=== PATIENT | male | born 1965 | race Caucasian/White ===

== ENCOUNTER 2017-11-14 12:41 | Emergency (ER) | END 2017-11-14 16:02 | disposition home or self-care (01) ==

== ENCOUNTER 2019-04-29 08:03 | Inpatient (IN) | payer OTHER ==
[~2019-04-29] VITALS: Ht 170.2 cm; Wt 91.9 kg
[~2019-04-29 08:03] MED LIST: CEPH-443 PO; IBUP-1561 PO; SULF1TAB31 PO
[2019-04-29] MEDS ORDERED: CEFEPIME 2GM/50 ML (PMX) 50 ML IVPB STA (08:21)
[2019-04-29] MEDS ORDERED: ACETAMINOPHEN 325 MG TAB PO STA (08:21)
[2019-04-29] MEDS ORDERED: SODIUM CHLORIDE 0.9% 1L BAG IV* STA (08:21)
[2019-04-29] MEDS ORDERED: HYDROmorphONE 1 MG/ML SYG IV STA ×2 (08:21→11:42)
[2019-04-29] MEDS ORDERED: ONDANSETRON 4 MG INJ IV STA ×2 (08:21→11:42)
[2019-04-29] MEDS ORDERED: VANCOMYCIN 1 GM (PMX) 250 ML IVPB ONE (08:30)
[2019-04-29] MEDS ORDERED: TACR1CAP26 PO (08:55)
[2019-04-29] MEDS ORDERED: TERA1CAP3 PO (08:56)
[2019-04-29] MEDS ORDERED: PANT40TA3 PO (08:57)
[2019-04-29] MEDS ORDERED: AMLO5TAB4 PO (08:57)
[2019-04-29] MEDS ORDERED: SULF1TAB31 PO (08:58)
[2019-04-29] MEDS ORDERED: CALC1TAB79 PO (08:59)
[2019-04-29] MEDS ORDERED: MAGN400T28 PO (08:59)
[2019-04-29] MEDS ORDERED: IODIXANOL LOCM 100 ML BTL ONE (09:28)
[2019-04-29] MEDS ORDERED: SOD CHLORIDE 0.9% 100 ML ONE (09:28)
[2019-04-29] MEDS ORDERED: ACETAMINOPHEN 325 MG TAB PO PRN (11:30)
[2019-04-29] MEDS ORDERED: ONDANSETRON 4 MG INJ IV PRN (11:30)
[2019-04-29] MEDS: TACROLIMUS 1 MG CAP PO SCH ×2 (12:30→21:29)
[2019-04-29] MEDS ORDERED: DEXTROSE 5%-0.45% NACL 1,000 ML IV SCH (12:30)
[2019-04-29] MEDS ORDERED: morphine 2 MG INJ IV PRN (12:30)
[2019-04-29] MEDS: AMLODIPINE 5 MG TAB PO SCH (12:30)
[2019-04-29] MEDS: PANTOPRAZOLE (EC) 40 MG TAB PO SCH (12:30)
--- NOTE | 2019-04-29 12:36 | ERD ---
ER Documentation Chief Complaint Chief Complaint fever , chiils , body ache x 1 day HPI This is a 53-year-old male with a past medical history of a liver transplant initially in 2011 that failed. The patient had a liver transferred secondary to hepatitis C and a second transplant was 2013 at [facility]. His liver specialist is Dr. Palomares. He was seen and evaluated by his doctor 3 days prior to arrival for frequent urination. He been placed on Bactrim despite a normal urinalysis for suspected prostatitis. The patient yesterday had developed a tactile fever with shaking and chills. He was complaining of bilateral flank p ain. He had generalized weakness. His indicated she gave 1000 mg of Tylenol at 8 PM yesterday evening. He had further dose of Tylenol given at 2 AM this morning which was 500 mg. Patient does state he has mild tenderness in the right upper quadrant. He denies any recent hospitalizations. He denies a headache. He has no chest pain or shortness of breath. ROS All systems reviewed and are negative except as per history of present illness. Medications Home Meds Reported Medications Magnesium Oxide* (Magnesium Oxide*) 400 Mg Tablet, 400 MG PO BID, TAB 04/29/19 Calcium Carbonate/Vitamin D3 (Oysco 500+D Tablet) 1 Each Tablet, 1 EACH PO BID, TAB 04/29/19 Pantoprazole* (Protonix*) 40 Mg Tablet.dr, 40 MG PO DAILY, TAB 04/29/19 Amlodipine Besylate* (Norvasc*) 5 Mg Tablet, 5 MG PO DAILY, TAB 04/29/19 Terazosin Hcl* (Terazosin Hcl*) 1 Mg Capsule, 1 MG PO HS, CAP 04/29/19 Tacrolimus* (Prograf*) 1 Mg Capsule, 1 MG PO Q12, CAP 04/29/19 Discontinued Reported Medications Sulfamethoxazole/Trimethoprim* (Bactrim Ds* Tablet) 1 Each Tablet, 1 TAB PO BID, TAB STARTED 7-10 FOR 14 DAYS 04/29/19 Discontinued Scripts Ibuprofen* (Motrin*) 400 Mg Tab, 400 MG PO Q8 PRN for PAIN AND OR ELEVATED TEMP, #12 TAB Prov:ELSA WHITTEN MD 11/14/17 Sulfamethoxazole/Trimethoprim* (Bactrim Ds* Tablet) 1 Each Tablet, 1 TAB PO BID for 7 Days, #14 TAB Prov:GOTTI-ROSS,ELSA MD 11/14/17 Cephalexin* (Keflex*) 500 Mg Capsule, 500 MG PO BID for 7 Days, CAP Prov:ELSA WHITTEN MD 11/14/17 Allergies Allergies: Coded Allergies: morphine (Verified Adverse Reaction, Intermediate, RASH, 04/29/19) PMhx/Soc History of Surgery: Yes (2 LIVER TRANSPLANTS) Anesthesia Reaction: No Hx Neurological Disorder: No Hx Respiratory Disorders: No Hx Cardiac Disorders: Yes (HTN) Hx Psychiatric Problems: No Hx Miscellaneous Medical Probl: No Hx Alcohol Use: No Hx Substance Use: No Hx Tobacco Use: No Smoking Status: Never smoker Physical Exam Vitals Vital Signs Date Temp Pulse Resp B/P (MAP) Pulse Ox O2 O2 Flow FiO2 Time Delivery Rate 04/29/19 92 20 106/74 100 Room Air 10:30 (85) 04/29/19 99.1 90 18 122/87 97 Nasal 2.0 09:34 (99) Cannula 04/29/19 93 19 122/87 98 Nasal 08:25 (99) Cannula 04/29/19 101.1 105 18 134/78 97 08:07 (96) Physical Exam Constitutional:Well-developed. Well-nourished. HEENT:Normocephalic. Atraumatic.Pupils were equal round reactive to light. Dry mucous membranes.No tonsillar exudates. Neck: No nuchal rigidity. No lymphadenopathy. No posterior cervical spine tenderness or step-offs. Respiratory: Not using accessory muscles of respiration.Lungs were clear to auscultation bilaterally. No rhonchi. No rales. No wheezing. Cardiovascular: Tachycardic with regular rhythm.No murmurs. No rubs were appreciated.S1, S2 normal. Distal pulses are palpable 2+ bilaterally. GI: Abdomen was soft. Right upper quadrant tenderness. Non Distended. No pulsatile abdominal masses or bruits. No rebound. No guarding. Bowel sounds were present and normal. Muscle skeletal: Full range of motion of both the upper and lower extremities bilaterally.Normal muscle tone.No assymetrical calf tenderness or swelling. Skin: Diaphoretic. No petechia, no purpura. No lesions on the palms or the soles of the feet. No maculopapular rash. NEURO: Patient was alert, awake, orientated x3.No facial droop. Gait observed and normal with no ataxia.Speech had regular rate and rhythm. No focal neurological deficits. Result Diagram: 04/29/19 0920 04/29/19 0830 Results 24 hrs Laboratory Tests Test 04/29/19 08:30 04/29/19 08:33 04/29/19 08:58 04/29/19 09:20 Prothrombin Time 14.7 Sec Prothrombin Time 1.1 Ratio INR 1.14 International Normalized Ratio Activated 22.2 Sec Partial Thrombop last Time Sodium Level 137 mmol/L Potassium Level 4.1 mmol/L Chloride Level 102 mmol/L Carbon Dioxide 23 mmol/L Level Anion Gap 12 Blood Urea 15 mg/dl Nitrogen Creatinine 1.16 mg/dl Est Glomerular > 60 mL/min Filtrat Rate mL/min Glucose Level 227 mg/dl Calcium Level 9.9 mg/dl Total Bilirubin 1.5 mg/dl Direct Bilirubin 0.00 mg/dl Indirect 1.5 mg/dl Bilirubin Aspartate Amino 233 IU/L Transf (AST/SGOT ) Alanine 225 IU/L Aminotransferase (ALT/SGPT) Alkaline 83 IU/L Phosphatase Troponin I < 0.012 ng/ml Total Protein 8.1 g/dl Albumin 4.6 g/dl Globulin 3.50 g/dl Albumin/Globulin 1.31 Ratio Amylase Level 63 U/L Lipase 27 U/L POC Venous 1.1 mmol/L Lactate Urine Color [place] Urine Clarity SLIGHTLY CLOUDY Urine pH 6.0 Urine Specific 1.026 [place] Urine Ketones TRACE mg/dL Urine Nitrite NEGATIVE mg/dL Urine Bilirubin 1+ mg/dL Urine 1+ mg/dL Urobilinogen Urine Leukocyte NEGATIVE Stephanie/ul Esterase Urine 1 /HPF Microscopic RBC Urine 2 /HPF Microscopic WBC Urine Squamous FEW /HPF Epithelial Cells Urine Mucus FEW /HPF Urine Hemoglobin NEGATIVE mg/dL Urine Glucose NEGATIVE mg/dL Urine Total 2+ mg/dl Protein White Blood 12.6 10^3/ul Count Red Blood Count 5.31 10^6/ul Hemoglobin 16.4 g/dl Hematocrit 49.1 % Mean Corpuscular 92.5 fl Volume Mean Corpuscular 30.9 pg Hemoglobin Mean Corpuscular 33.4 g/dl Hemoglobin Viola nt Red Cell 12.2 % Distribution Width Platelet Count 111 10^3/UL Mean Platelet 11.0 fl Volume Immature 0.600 % Granulocytes % Neutrophils % 87.0 % Lymphocytes % 5.4 % Monocytes % 6.8 % Eosinophils % 0.0 % Basophils % 0.2 % Nucleated Red 0.0 /100WBC Blood Cells % Immature 0.080 10^3/ul Granulocytes # Neutrophils # 11.0 10^3/ul Lymphocytes # 0.7 10^3/ul Monocytes # 0.9 10^3/ul Eosinophils # 0.0 10^3/ul Basophils # 0.0 10^3/ul Nucleated Red 0.0 10^3/ul Blood Cells # Test 04/29/19 10:21 Lactic Acid 1.2 mmol/L Level Current Medications Medications Dose Sig/Alcon Start Time Status Last (Trade) Ordered Route PRN Stop Time Admin Dose Reason Admin Sodium 2,610 ml BOLUS OVER 2 04/29/19 DC 04/29/19 Chloride HOURS STAT 08:21 08:48 (NS) IV* 04/29/19 08:23 650 mg ONCE STAT 04/29/19 DC 04/29/19 Acetaminophen PO 08:21 08:47 (Tylenol 04/29/19 08:23 Tab) 1 mg ONCE STAT 04/29/19 DC 04/29/19 Hydromorphone IV 08:21 08:48 HCl 04/29/19 08:23 (Dilaudid) Ondansetron 4 mg ONCE STAT 04/29/19 DC 04/29/19 HCl (Zofran IV 08:21 08:47 Inj) 04/29/19 08:23 Cefepime HCl 50 ml @ ONCE STAT 04/29/19 DC 04/29/19 100 mls/hr IVPB 08:21 08:48 04/29/19 08:50 Vancomycin 250 ml @ ONCE ONCE 04/29/19 DC 04/29/19 HCl 125 mls/hr IVPB 08:30 09:59 04/29/19 10:29 IV Flush 10 ml STK-MED 04/29/19 DC (NS 10 ml) ONCE .ROUTE 09:28 04/29/19 09:29 Sodium 100 ml @ ud STK-MED 04/29/19 DC Chloride ONCE .ROUTE 09:28 04/29/19 09:29 Iodixanol 100 ml STK-MED 04/29/19 DC (Visipaque ONCE .ROUTE 09:28 Locm) 04/29/19 09:29 Procedures/MDM This patient presented to the emergency department with abdominal pain and was seen and evaluated by myself. My differential diagnosis included but was not limited to abdominal aortic aneurysm, appendicitis, pancreatitis, perforated p eptic ulcer, perforated viscus, Boerhaave's syndrome or visceral pain such as diverticulitis, DKA, esophagitis, hepatitis or bowel obstruction. The patient was placed on a expansion envelope maker hand, continuous pulse oximetry, and IV access was established by nursing staff. The patient did meet Sirs criteria. However the patient's lactic acid was normal. Blood cultures and urine cultures were obtained. The patient did receive a 30 cc/kg bolus of normal saline initially was treated for vancomycin and cefepime for sepsis of unclear etiology. The patient had no evidence of urinary tract infection as there is no pyuria on his urinalysis. The patient had no leukocytosis. Mild transaminitis but no severe electrolyte abnormalities. Fever was controlled with acetaminophen. I obtained a chest radiograph and there is no infiltrates no pneumothorax or pleural effusions. Due to the patient's physical exam findings and history of liver transplant with tenderness the right upper quadrant I did obtain a CT scan of the abdomen with IV contrast that was reviewed by the radiologist and indicated the following: Postoperative changes consistent with previous hepatic transplant. No biliary ductal dilatation. There is mild fat indistinctness surrounding the hepatic hilum along with mild biliary ductal enhancement, which may be postoperative although for which the possibility of a process such as cho langitis is not excluded. Incomplete opacification of the SMV, just inferior to which there is an u nopacified branch vessel that may relate to the phase of scanning although for which the possibility of slow flow or nonocclusive thrombus is not excluded. Short-term imaging follow-up by contrast enhanced CT, or MRI without and with contrast could be considered for further assessment. While there appears to be altered postsurgical anatomy of the bowel, there are no findings seen to suggest intestinal obstruction, nor localizing bowel wall thickening or inflammatory changes seen at this time. The patient will be admitted to the renal physician Dr. Wang. The patient will undergo an MRCP to rule out for cholangitis. The patient was given analgesic medication which improved his abdominal discomfort and myalgias. Critical Care: Time: 35 minutes Treatments/Evaluations: Close monitoring and treatment of unstable vital signs, cardiorespiratory, and neurologic status, while maintaining tight balance of fluid, respiratory, and cardiac interventions. Time does not include performing any of the above billable procedures. 12 Lead EKG tracing ordered and reviewed by myself showed: Normal sinus rhythm of 89 bpm and no arrhythmia. CT interval normal. QRS duration normal. No ST segment elevation No ST segment depression. No changes consistent with acute ischemia. Departure Diagnosis: Primary Impression: Fever Fever type: unspecified Qualified Codes: R50.9 - Fever, unspecified Additional Impressions: Abdominal pain Abdominal location: right upper quadrant Qualified Codes: R10.11 - Right upper quadrant pain Hyperglycemia without ketosis Condition: Serious WILIAN ROY MD Apr 29, 2019 12:25
[2019-04-29 12:55] VITALS: BP 113/74; PULSE 105; RESP 20
[2019-04-29 13:07] VITALS: Ht 170.2 cm; Wt 91.9 kg
[2019-04-29] MEDS: PIPER-TAZO 3.375 GM IV (PMX) 100 ML IVPB SCH ×2 (13:39→21:30)
--- NOTE | 2019-04-29 13:50 | HP ---
DATE OF ADMISSION: 04/29/2019 CHIEF COMPLAINT: Right-sided abdominal pain associated with fever. HISTORY OF PRESENT ILLNESS AND HOSPITAL COURSE: A 53-year-old gentleman with history of hepatitis C, status post treatment followed by a liver transplant 5 years prior to admission, presented to emerge ncy room with complaint of right-sided abdominal pain associated with fevers. The patient reports 2 episodes of emesis. He denies bright red blood. He denies hematemesis. No bright red blood per rec kristie or melena. He was seen by is transplant team a few days prior to admission and started on Bactri m for presumed UTI. Initial evaluation revealed white blood cell count of 12.6. Hemoglobin was 16.4 , platelet count of 111,000. Basic metabolic panel was essentially normal except for glucose of 227. Total bilirubin was 1.5 with AST of 233, ALT of 225 and alkaline phosphatase of 83. CAT scan of th e abdomen and pelvis showed postoperative changes consistent with previous hepatic transplant. There was no biliary ductal dilatation; however cholangitis could not be excluded. There was also incompl ete opacification of SMV suggestive of thrombosis. PAST MEDICAL HISTORY: Includes a history of: 1. Hepatitis C. 2. Hypertension. PAST SURGICAL HISTORY: Status post liver transplant 5 years prior to admission. MEDICATIONS PRIOR TO ADMISSION: 1. Bactrim double strand. 2. Amlodipine 5 mg p.o. daily. 3. Vitamin D supplement. 4. Magnesium oxide. 5. Protonix. 6. Tacrolimus. 7. Terazosin. SOCIAL HISTORY: The patient lives at home. He denies tobacco or alcohol use. PHYSICAL EXAMINATION: GENERAL: Well-developed, well-nourished, obese male who is in mild distress. VITAL SIGNS: Stable. Temperature was 101 degrees Fahrenheit. HEENT: Extraocular muscles intact. Pupils equal and reactive to light bilaterally. Sclerae are ani cteric. Oropharynx is clear and moist. NECK: Supple, no JVD, no carotid bruits. LUNGS: Clear to auscultation bilaterally. CARDIAC: Regular rate and rhythm. No murmurs or gallops. ABDOMEN: Soft, right upper quadrant and epigastric tenderness to palpation. No rebound or guarding. Normoactive bowel sounds. EXTREMITIES: No clubbing, cyanosis, or edema. NEUROLOGIC: Grossly nonfocal. ASSESSMENT: 1. A 53-year-old male presenting with right upper quadrant abdominal pain and fever. Rule out chola ngitis. Rule out acute cholecystitis. 2. History of hepatitis C. 3. Status post liver transplant 5 years prior to admission. 4. Elevated LFTs, rule out rejection. 5. Hypertension. PLAN: 1. Admit to med/surg. 2. IV Zosyn. 3. MRCP. 4. Resume selective home medications. 5. Keep n.p.o. 6. GI consultation was requested. Dictated By: SHELBY FALL/BANDAR Conf#: [id number] DID#: [id number] CC: DRU HERZOG;*EndCC*
--- NOTE | 2019-04-29 13:58 | CONS ---
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 Gomez CC: DRU GOMEZ MD ; Consultation Date/Type/Reason Admit Date/Time Apr 29, 2019 at 11:04 Date of Consultation: Apr 29, 2019 Type of Consult GI Reason for Consultation Indirect hyperbilirubinemia, transaminitis -Rule out cholangitis Date/Time of Note DATE: 04/29/19 TIME: 13:41 Hx of Present Illness This is a 53-year-old male past medical history of hypertension, hepatitis C leading to liver cirrhosis status post liver transplant in 2011 which was rejected, patient was then treated for hepatitis C and received another transplant in 2013. He was recently seen by his primary care doctor on and placed on Bactrim?. Sunday he was seen by liver transplant team with normal liver function tests. Yesterday around 3:00 patient began to feel dizzy, later in the day after dinner he began to complain of chills and subjective fever. He was given 1000 mg of Tylenol, however fever did not improve and patient presented to [facility] earlier this morning for further evaluation. Lab work-up shows Leukocytosis with WBC of 12.6, platelet count of 111 and INR of 1.14, and indirect hyperbilirubinemia of 1.5 with elevated AST to 233 and elevated ALT at 225, and albumin of 4.6.. A CT abdomen pelvis was obtained showing post operative changes consistent with previous hepatic transplants. No biliary ductal dilation. There is mild fat indistinctness rounding the hepatic hilum along with mild biliary ductal enhancement, which may be postoperative although for which the possibility of a process such as cholangitis is not excluded. Complete opacification of the SMV just inferior to which there is an unopacified branch vessel that may relate to the phase of scanning although for which the possibility of slow flow or non-occlusive thrombus is not excluded. Short-term injury follow-up by contrast-enhanced CT or MRI with and without contrast to be considered for further assessment. While there appears to be altered postsurgical anatomy of the bowel there are no findings seen to suggest intestinal obstruction, no localization bowel wall thickening or inflammation changes seen at this time. Does complain of upper right upper quadrant pain at time evaluation patient is resting in bed slightly diaphoretic with a low-grade temperature of 99.6 he does complain of mild/moderate right upper quadrant pain. Past Medical History Home Meds Reported Medications Magnesium Oxide* (Magnesium Oxide*) 400 Mg Tablet, 400 MG PO BID, TAB 04/29/19 Calcium Carbonate/Vitamin D3 (Oysco 500+D Tablet) 1 Each Tablet, 1 EACH PO BID, TAB 04/29/19 Pantoprazole* (Protonix*) 40 Mg Tablet.dr, 40 MG PO DAILY, TAB 04/29/19 Amlodipine Besylate* (Norvasc*) 5 Mg Tablet, 5 MG PO DAILY, TAB 04/29/19 Terazosin Hcl* (Terazosin Hcl*) 1 Mg Capsule, 1 MG PO HS, CAP 04/29/19 Tacrolimus* (Prograf*) 1 Mg Capsule, 1 MG PO Q12, CAP 04/29/19 Discontinued Reported Medications Sulfamethoxazole/Trimethoprim* (Bactrim Ds* Tablet) 1 Each Tablet, 1 TAB PO BID, TAB STARTED 7-10 FOR 14 DAYS 04/29/19 Discontinued Scripts Ibuprofen* (Motrin*) 400 Mg Tab, 400 MG PO Q8 PRN for PAIN AND OR ELEVATED TEMP, #12 TAB Prov:ELSA WHITTEN MD 11/14/17 Sulfamethoxazole/Trimethoprim* (Bactrim Ds* Tablet) 1 Each Tablet, 1 TAB PO BID for 7 Days, #14 TAB Prov:ELSA WHITTEN MD 11/14/17 Cephalexin* (Keflex*) 500 Mg Capsule, 500 MG PO BID for 7 Days, CAP Prov:ELSA WHITTEN MD 1/31/18 Medications Current Medications Acetaminophen (Tylenol Tab) 650 mg ER BRIDGE PRN PO .MILD PAIN 1-3 OR TEMP; Start 04/29/19 at 11:30; Stop 04/30/19 at 11:29 Piperacillin Sod/ Tazobactam Sod 100 ml @ 200 mls/hr Q8 IVPB Last administered on 04/29/19at 13:39; Admin Dose 200 MLS/HR; Start 04/29/19 at 14:00 Ondansetron HCl (Zofran Inj) 4 mg Q4 PRN IV nausea; Start 04/29/19 at 12:30 Dextrose/Sodium Chloride 1,000 ml @ 100 mls/hr Q10H IV Last administered on 04/29/19at 13:28; Admin Dose 100 MLS/HR; Start 04/29/19 at 12:30 Morphine Sulfate (morphine) 2 mg Q3 PRN IV mod pain; Start 04/29/19 at 12:30; Status UNV Amlodipine Besylate (Norvasc) 5 mg DAILY PO ; Start 04/29/19 at 12:30 Pantoprazole (Protonix Tab) 40 mg DAILY PO ; Start 04/29/19 at 12:30 Tacrolimus (Prograf) 1 mg Q12 PO ; Start 04/29/19 at 12:30 Terazosin HCl (Hytrin) 1 mg HS PO ; Start 04/29/19 at 21:00 Insulin Aspart (Novolog Insulin Pen) NOVOLOG *MODERATE* ALGORITHM WITH MEALS BEDTIME SC ; Start 04/29/19 at 18:00 Allergies: Coded Allergies: morphine (Verified Adverse Reaction, Intermediate, RASH, 04/29/19) Social History Smoking Status: Never smoker Exam/Review of Systems Exam Vitals Vital Signs Date Temp Pulse Resp B/P (MAP) Pulse Ox O2 O2 Flow FiO2 Time Delivery Rate 04/29/19 Nasal 2.0 13:22 Cannula 04/29/19 98.2 105 20 113/74 91 12:55 (87) Exam PHYSICAL EXAMINATION: GENERAL: Well developed, well nourished, alert & oriented x 3 SKIN: No lesions HEAD: Normocephalic, atraumatic, no tenderness. EYES: Pupils equal reactive to light and accommodation, no discharge. EARS/NOSE AND THROAT: Ears normal, nose normal. NECK: Supple, no masses CHEST: Inspection within normal limits. CARDIOVASCULAR: Heart: Regular rate and rhythm RESPIRATORY: Lungs clear to auscultation GASTROINTESTINAL AND LIVER: Abdomen: Soft, RUQ tenderness, non-distended, no hernias, no masses, no guarding, no rebound tenderness, normoactive bowel sounds. Rectal: Deferred. Results Result Diagram: 04/29/19 0920 04/29/19 0830 Results 24hrs Laboratory Tests Test 04/29/19 08:30 04/29/19 08:33 04/29/19 08:58 04/29/19 09:20 Prothrombin Time 14.7 Prothrombin Time 1.1 Ratio INR International 1.14 Normalized Ratio Activated 22.2 L Partial Thrombopl ast Time Sodium Level 137 Potassium Level 4.1 Chloride Level 102 Carbon Dioxide 23 Level Anion Gap 12 Blood Urea 15 Nitrogen Creatinine 1.16 Est Glomerular > 60 Filtrat Rate mL/min Glucose Level 227 H Calcium Level 9.9 Total Bilirubin 1.5 H Direct Bilirubin 0.00 Indirect 1.5 H Bilirubin Aspartate Amino 233 H Transf (AST/SGOT) Alanine 225 H Aminotransferase (ALT/SGPT) Alkaline 83 Phosphatase Troponin I < 0.012 Total Protein 8.1 Albumin 4.6 Globulin 3.50 H Albumin/Globulin 1.31 Ratio Amylase Level 63 Lipase 27 POC Venous 1.1 Lactate Urine Color [place] Urine Clarity SLIGHTLY CLOUDY A Urine pH 6.0 Urine Specific 1.026 [place] Urine Ketones TRACE A Urine Nitrite NEGATIVE Urine Bilirubin 1+ H Urine 1+ H Urobilinogen Urine Leukocyte NEGATIVE Esterase Urine Microscopic 1 RBC Urine Microscopic 2 WBC Urine Squamous FEW Epithelial Cells Urine Mucus FEW A Urine Hemoglobin NEGATIVE Urine Glucose NEGATIVE Urine Total 2+ H Protein White Blood Count 12.6 H Red Blood Count 5.31 Hemoglobin 16.4 Hematocrit 49.1 Mean Corpuscular 92.5 Volume Mean Corpuscular 30.9 Hemoglobin Mean Corpuscular 33.4 Hemoglobin Concen t Red Cell 12.2 Distribution Width Platelet Count 111 L Mean Platelet 11.0 H Volume Immature 0.600 H Granulocytes % Neutrophils % 87.0 H Lymphocytes % 5.4 L Monocytes % 6.8 Eosinophils % 0.0 Basophils % 0.2 Nucleated Red 0.0 Blood Cells % Immature 0.080 H Granulocytes # Neutrophils # 11.0 H Lymphocytes # 0.7 L Monocytes # 0.9 Eosinophils # 0.0 Basophils # 0.0 Nucleated Red 0.0 Blood Cells # Test 04/29/19 10:21 04/29/19 12:58 Lactic Acid Level 1.2 1.3 Medications Medication Current Medications Acetaminophen (Tylenol Tab) 650 mg ER BRIDGE PRN PO .MILD PAIN 1-3 OR TEMP; Start 04/29/19 at 11:30; Stop 04/30/19 at 11:29 Piperacillin Sod/ Tazobactam Sod 100 ml @ 200 mls/hr Q8 IVPB Last administered on 04/29/19at 13:39; Admin Dose 200 MLS/HR; Start 04/29/19 at 14:00 Ondansetron HCl (Zofran Inj) 4 mg Q4 PRN IV nausea; Start 04/29/19 at 12:30 Dextrose/Sodium Chloride 1,000 ml @ 100 mls/hr Q10H IV Last administered on 04/29/19at 13:28; Admin Dose 100 MLS/HR; Start 04/29/19 at 12:30 Morphine Sulfate (morphine) 2 mg Q3 PRN IV mod pain; Start 04/29/19 at 12:30; Status UNV Amlodipine Besylate (Norvasc) 5 mg DAILY PO ; Start 04/29/19 at 12:30 Pantoprazole (Protonix Tab) 40 mg DAILY PO ; Start 04/29/19 at 12:30 Tacrolimus (Prograf) 1 mg Q12 PO ; Start 04/29/19 at 12:30 Terazosin HCl (Hytrin) 1 mg HS PO ; Start 04/29/19 at 21:00 Insulin Aspart (Novolog Insulin Pen) NOVOLOG *MODERATE* ALGORITHM WITH MEALS BEDTIME SC ; Start 04/29/19 at 18:00 SHAYE PACKER Apr 29, 2019 13:51
[2019-04-29 15:46] VITALS: BP 123/83; PULSE 90; RESP 18
[2019-04-29] MEDS: ONDANSETRON 4 MG INJ IV PRN (16:21)
[2019-04-29] MEDS: INSULIN ASPART [NOVOLOG] 3 ML PEN SC SCH ×2 (17:09→23:23)
[2019-04-29 20:00] VITALS: PULSE 83
[2019-04-29 20:18] VITALS: BP 107/51; PULSE 83; RESP 18
[2019-04-29] MEDS: TERAZOSIN 1 MG CAP PO SCH (21:29)
[2019-04-30] VITALS (8 sets, daily range): BP systolic 96–114; BP diastolic 58–76; PULSE 66–86; RESP 18–20
[2019-04-30] MEDS: ACETAMINOPHEN 325 MG TAB PO PRN ×2 (04:14→14:51)
[2019-04-30] MEDS: PIPER-TAZO 3.375 GM IV (PMX) 100 ML IVPB SCH ×3 (05:03→20:49)
[2019-04-30] MEDS: HYDROmorphONE 1 MG/ML SYG IV PRN (05:15)
[2019-04-30] MEDS: INSULIN ASPART [NOVOLOG] 3 ML PEN SC SCH ×4 (08:00→20:49)
[2019-04-30] MEDS: AMLODIPINE 5 MG TAB PO SCH (08:32)
[2019-04-30] MEDS: TACROLIMUS 1 MG CAP PO SCH ×2 (08:32→20:45)
[2019-04-30] MEDS: PANTOPRAZOLE (EC) 40 MG TAB PO SCH (08:33)
--- NOTE | 2019-04-30 12:25 | PN ---
Date/Time of Note Date/Time of Note DATE: 04/30/19 TIME: 12:23 Assessment/Plan VTE [place]axis [place] [facility] [place]: 2 [place]CD [place] [facility] [place] [facility] [place] Yes Pharmacological prophylaxis: NA/contraindicated Pharm contraindication: thrombocytopenia Lines/Catheters IV C[facility]ter Type (from [facility] Saline Lock Assessment/Plan Hospital Course Summary Assessment and Plan: Assessment: Query cholangitis- -Transaminitis- improving, hyperbilirubinemia- improved, fever- currently afebrile , leukocytosis- resolved -MRCP- IMPRESSION: Limited examination due to significant motion artifacts. Stable postsurgical changes of liver transplant surgery. No abnormal hepatic enhancement within limitations of this study. No intrahepatic or extrahepatic biliary ductal dilatation. Mild splenomegaly. 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 Gomez Subjective: Course reviewed with nursing staff Patient interviewed and examined All labs, imaging and other results reviewed The patient feels much better today, appetite has improved, currently he is afebrile. No c/o n/v or abb pain. Continue close observation Exam PHYSICAL EXAMINATION: GENERAL: Well developed, alert & oriented x 3 SKIN: No lesions HEAD: Normocephalic, atraumatic, no tenderness. EYES: Pupils equal reactive to light and accommodation, no discharge. EARS/NOSE AND THROAT: Ears normal, nose normal. NECK: Supple, no masses CHEST: Inspection within normal limits. CARDIOVASCULAR: Heart: Regular rate and rhythm RESPIRATORY: Lungs clear to auscultation GASTROINTESTINAL AND LIVER: Abdomen: Soft, RUQ tenderness, non-distended, no hernias, no masses, no guarding, no rebound tenderness, normoactive bowel sounds. Rectal: Deferred. Result Diagram: 04/30/19 0506 04/30/19 0506 Results 24hrs Laboratory Tests Test 04/29/19 12:58 04/29/19 17:07 04/29/19 23:14 04/30/19 05:06 Lactic Acid Level 1.3 Bedside Glucose 134 190 White Blood Count 8.3 # Red Blood Count 4.65 L Hemoglobin 14.5 Hematocrit 42.9 Mean Corpuscular 92.3 Volume Mean Corpuscular 31.2 Hemoglobin Mean Corpuscular 33.8 Hemoglobin Concent Red Cell 12.4 Distribution Width Platelet Count 86 #L Mean Platelet Volume 11.6 H Immature 0.500 H Granulocytes % Neutrophils % 79.6 H Lymphocytes % 9.1 L Monocytes % 10.2 Eosinophils % 0.4 Basophils % 0.2 Nucleated Red Blood 0.0 Cells % Immature 0.040 H Granulocytes # Neutrophils # 6.6 Lymphocytes # 0.8 Monocytes # 0.9 Eosinophils # 0.0 Basophils # 0.0 Nucleated Red Blood 0.0 Cells # Sodium Level 137 Potassium Level 4.0 Chloride Level 107 Carbon Dioxide Level 21 Anion Gap 9 Blood Urea Nitrogen 14 Creatinine 0.91 Est Glomerular > 60 Filtrat Rate mL/min Glucose Level 116 # Calcium Level 8.5 Total Bilirubin 1.4 H Direct Bilirubin 0.30 #H Indirect Bilirubin 1.1 Aspartate Amino 69 #H Transf (AST/SGOT) Alanine 152 H Aminotransferase (AL T/SGPT) Alkaline Phosphatase 65 Total Protein 6.3 # Albumin 3.3 # Test 04/30/19 08:31 04/30/19 11:46 Bedside Glucose 114 134 Exam/Review of Systems Exam Vitals Vital Signs Date Temp Pulse Resp B/P (MAP) Pulse Ox O2 O2 Flow FiO2 Time Delivery Rate 04/30/19 97.9 75 20 103/70 96 Room Air 11:27 (81) 04/30/19 2.0 07:46 Intake and Output 04/29/19 04/29/19 04/30/19 1515:00 23:00 07:00 IntakeIntake Total 2910 ml 100 ml OutputOutput Total 500 ml 700 ml BalanceBalance 2410 ml 100 ml -700 ml Results Results 24hrs Laboratory Tests Test 04/29/19 12:58 04/29/19 17:07 04/29/19 23:14 04/30/19 05:06 Lactic Acid Level 1.3 Bedside Glucose 134 190 White Blood Count 8.3 # Red Blood Count 4.65 L Hemoglobin 14.5 Hematocrit 42.9 Mean Corpuscular 92.3 Volume Mean Corpuscular 31.2 Hemoglobin Mean Corpuscular 33.8 Hemoglobin Concent Red Cell 12.4 Distribution Width Platelet Count 86 #L Mean Platelet Volume 11.6 H Immature 0.500 H Granulocytes % Neutrophils % 79.6 H Lymphocytes % 9.1 L Monocytes % 10.2 Eosinophils % 0.4 Basophils % 0.2 Nucleated Red Blood 0.0 Cells % Immature 0.040 H Granulocytes # Neutrophils # 6.6 Lymphocytes # 0.8 Monocytes # 0.9 Eosinophils # 0.0 Basophils # 0.0 Nucleated Red Blood 0.0 Cells # Sodium Level 137 Potassium Level 4.0 Chloride Level 107 Carbon Dioxide Level 21 Anion Gap 9 Blood Urea Nitrogen 14 Creatinine 0.91 Est Glomerular > 60 Filtrat Rate mL/min Glucose Level 116 # Calcium Level 8.5 Total Bilirubin 1.4 H Direct Bilirubin 0.30 #H Indirect Bilirubin 1.1 Aspartate Amino 69 #H Transf (AST/SGOT) Alanine 152 H Aminotransferase (AL T/SGPT) Alkaline Phosphatase 65 Total Protein 6.3 # Albumin 3.3 # Test 04/30/19 08:31 04/30/19 11:46 Bedside Glucose 114 134 Medications Medication Current Medications Piperacillin Sod/ Tazobactam Sod 100 ml @ 200 mls/hr Q8 IVPB Last administered on 04/30/19 05:03; Admin Dose 200 MLS/HR; Start 04/29/19 at 14:00 Ondansetron HCl (Zofran Inj) 4 mg Q4 PRN IV nausea Last administered on 04/29/19 16:21; Admin Dose 4 MG; Start 04/29/19 at 12:30 Amlodipine Besylate (Norvasc) 5 mg DAILY PO Last administered on 04/30/19 08:32; Admin Dose 5 MG; Start 04/29/19 at 12:30 Pantoprazole (Protonix Tab) 40 mg DAILY PO Last administered on 04/30/19at 08: 33; Admin Dose 40 MG; Start 04/29/19 at 12:30 Tacrolimus (Prograf) 1 mg Q12 PO Last administered on 04/30/19 08:32; Admin Dose 1 MG; Start 04/29/19 at 12:30 Terazosin HCl (Hytrin) 1 mg HS PO Last administered on 04/29/19 21:29; Admin Dose 1 MG; Start 04/29/19 at 21:00 Insulin Aspart (Novolog Insulin Pen) NOVOLOG *MODERATE* ALGORITHM WITH MEALS BEDTIME SC Last administered on 04/29/19 23:23; Admin Dose 1 UNIT; Start 04/29/19 at 18:00 Acetaminophen (Tylenol Tab) 650 mg Q4H PRN PO MILD PAIN(1-3)OR ELEVATED TEMP Last administered on 04/30/19at 04:14; Admin Dose 650 MG; Start 04/29/19 at 17:00 Hydromorphone HCl (Dilaudid) 1 mg Q3H PRN IV SEVERE PAIN LEVEL 7-10 Last administered on 04/30/19at 05:15; Admin Dose 1 MG; Start 04/29/19 at 17:30 SHAYE PACKER Apr 30, 2019 12:25
--- NOTE | 2019-04-30 13:22 | PN ---
Date/Time of Note Date/Time of Note DATE: 04/30/19 TIME: 13:19 Subjective Patient reports feeling much better. No abdominal pain. No nausea vomiting Objective Vitals Vital Signs Date Temp Pulse Resp B/P (MAP) Pulse Ox O2 O2 Flow FiO2 Time Delivery Rate 04/30/19 97.9 75 20 103/70 96 Room Air 11:27 (81) 04/30/19 2.0 07:46 Intake and Output 04/29/19 04/29/19 04/30/19 1414:59 22:59 06:59 IntakeIntake Total 2910 ml 100 ml OutputOutput Total 500 ml 700 ml BalanceBalance 2410 ml 100 ml -700 ml Neck supple Clear to auscultation bilaterally Regular rate and rhythm Soft nontender nondistended normoactive bowel sounds No edema Nonfocal Results Result Diagram: 04/30/19 0506 04/30/19 0506 Medications Medications Current Medications Piperacillin Sod/ Tazobactam Sod 100 ml @ 200 mls/hr Q8 IVPB Last administered on 04/30/19at 05:03; Admin Dose 200 MLS/HR; Start 04/29/19 at 14:00 Ondansetron HCl (Zofran Inj) 4 mg Q4 PRN IV nausea Last administered on 04/29/19at 16:21; Admin Dose 4 MG; Start 04/29/19 at 12:30 Amlodipine Besylate (Norvasc) 5 mg DAILY PO Last administered on 04/30/19at 08:32; Admin Dose 5 MG; Start 04/29/19 at 12:30 Pantoprazole (Protonix Tab) 40 mg DAILY PO Last administered on 04/30/19at 08:33; Admin Dose 40 MG; Start 04/29/19 at 12:30 Tacrolimus (Prograf) 1 mg Q12 PO Last administered on 04/30/19 08:32; Admin Dose 1 MG; Start 04/29/19 at 12:30 Terazosin HCl (Hytrin) 1 mg HS PO Last administered on 04/29/19at 21:29; Admin Dose 1 MG; Start 04/29/19 at 21:00 Insulin Aspart (Novolog Insulin Pen) NOVOLOG *MODERATE* ALGORITHM WITH MEALS BEDTIME SC Last administered on 04/29/19at 23:23; Admin Dose 1 UNIT; Start 7/16/19 at 18:00 Acetaminophen (Tylenol Tab) 650 mg Q4H PRN PO MILD PAIN(1-3)OR ELEVATED TEMP Last administered on 04/30/19at 04:14; Admin Dose 650 MG; Start 04/29/19 at 17:00 Hydromorphone HCl (Dilaudid) 1 mg Q3H PRN IV SEVERE PAIN LEVEL 7-10 Last administered on 04/30/19at 05:15; Admin Dose 1 MG; Start 04/29/19 at 17:30 VTE Prophylaxis Risk score (from [facility])>0 risk: 2 SCD applied (from [facility] [place] Yes Lines/Catheters IV Catheter Type: Saline Lock Grossman in Place: No Assessment/Plan Assessment/Plan 53-year-old male with gram-negative thais bacteremia of unclear source Status post liver transplant 5 years prior to admission History of hepatitis C Right upper quadrant abdominal pain, resolved. MRCP is unremarkable Elevated LFTs, improving. There is concern about transplant rejection. However patient is clinically improving Thrombocytopenia Continue Zosyn Check final blood culture results GI follow-up Repeat urinalysis SHELBY KRAUSE MD Apr 30, 2019 13:22
[2019-04-30] MEDS: TERAZOSIN 1 MG CAP PO SCH (20:45)
[2019-05-01 04:06] VITALS: BP 95/62; PULSE 76; RESP 20
[2019-05-01] MEDS: ONDANSETRON 4 MG INJ IV PRN (05:30)
[2019-05-01] MEDS: HYDROmorphONE 1 MG/ML SYG IV PRN ×2 (05:30→08:55)
[2019-05-01] MEDS: PIPER-TAZO 3.375 GM IV (PMX) 100 ML IVPB SCH ×3 (05:31→21:25)
[2019-05-01] MEDS ORDERED: ONDANSETRON 4 MG INJ IV ONE (05:49)
[2019-05-01] MEDS: PANTOPRAZOLE 40 MG INJ IV SCH ×2 (05:53→17:45)
[2019-05-01] MEDS ORDERED: ONDANSETRON INJ 8 MG in DEXTROSE 5% 50 ML IV PRN (06:00)
[2019-05-01 07:11] VITALS: BP 111/69; PULSE 79; RESP 20
[2019-05-01] MEDS: INSULIN ASPART [NOVOLOG] 3 ML PEN SC SCH ×4 (07:57→21:00)
[2019-05-01] MEDS: TACROLIMUS 1 MG CAP PO SCH ×2 (08:54→21:25)
[2019-05-01] MEDS: AMLODIPINE 5 MG TAB PO SCH (08:55)
--- NOTE | 2019-05-01 11:13 | PN ---
Date/Time of Note Date/Time of Note DATE: 05/01/19 TIME: 11:11 Subjective Feels better. No new complaints Objective Vitals Vital Signs Date Temp Pulse Resp B/P (MAP) Pulse Ox O2 O2 Flow FiO2 Time Delivery Rate 05/01/19 98.1 79 20 111/69 95 Room Air 07:11 (83) 04/30/19 2.0 07:46 Intake and Output 04/30/19 04/30/19 05/01/19 1414:59 22:59 06:59 IntakeIntake Total 240 ml 240 ml 200 ml OutputOutput Total 350 ml 1050 ml 900 ml BalanceBalance -110 ml -810 ml -700 ml Clear to auscultation bilaterally Regular rate and rhythm no murmurs or gallops Soft nontender nondistended normoactive bowel sounds No edema Nonfocal Results Result Diagram: 04/30/19 0506 04/30/19 0506 Medications Medications Current Medications Piperacillin Sod/ Tazobactam Sod 100 ml @ 200 mls/hr Q8 IVPB Last administered on 05/01/19at 05:31; Admin Dose 200 MLS/HR; Start 04/29/19 at 14:00 Amlodipine Besylate (Norvasc) 5 mg DAILY PO Last administered on 05/01/19 08:55; Admin Dose 5 MG; Start 04/29/19 at 12:30 Tacrolimus (Prograf) 1 mg Q12 PO Last administered on 05/01/19 08:54; Admin Dose 1 MG; Start 04/29/19 at 12:30 Terazosin HCl (Hytrin) 1 mg HS PO Last administered on 04/30/19 20:45; Admin Dose 1 MG; Start 04/29/19 at 21:00 Insulin Aspart (Novolog Insulin Pen) NOVOLOG *MODERATE* ALGORITHM WITH MEALS BEDTIME SC Last administered on 04/30/19 20:49; Admin Dose 1 UNIT; Start 04/29/19 at 18:00 Acetaminophen (Tylenol Tab) 650 mg Q4H PRN PO MILD PAIN(1-3)OR ELEVATED TEMP Last administered on 04/30/19 14:51; Admin Dose 650 MG; Start 04/29/19 at 17:00 Hydromorphone HCl (Dilaudid) 1 mg Q3H PRN IV SEVERE PAIN LEVEL 7-10 Last administered on 7/18/19at 08:55; Admin Dose 1 MG; Start 04/29/19 at 17:30 Ondansetron HCl 8 mg/Dextrose 54 ml @ 108 mls/hr Q6H PRN IV NAUSEA AND/OR VOMITING; Start 05/01/19 at 06:00 Pantoprazole (Protonix Iv) 40 mg BID@06,18 IV Last administered on 05/01/19at 05 :53; Admin Dose 40 MG; Start 05/01/19 at 06:00 VTE Prophylaxis Risk score (from [facility])>0 risk: 4 SCD applied ([place] [facility] [place] Yes Lines/Catheters IV Catheter Type: Saline Lock Grossman in Place: No Assessment/Plan Assessment/Plan 53-year-old male with gram-negative thais bacteremia Abdominal pain, resolved Status post liver transplant 5 years prior to admission Elevated LFTs, slowly improving Thrombocytopenia Continue IV antibiotics Check final culture results Monitor LFT The results of lab studies and MRCP was faxed to [facility] SHELBY KRAUSE MD May 01, 2019 11:12
[2019-05-01 11:25] VITALS: BP 123/82; PULSE 72; RESP 20
[2019-05-01 15:30] VITALS: BP 115/75; PULSE 68; RESP 20
[2019-05-01 19:33] VITALS: BP 128/81; PULSE 72; RESP 18
[2019-05-01] MEDS: TERAZOSIN 1 MG CAP PO SCH (21:25)
[2019-05-01 23:40] VITALS: BP 111/71; PULSE 71; RESP 21
[2019-05-02] VITALS (7 sets, daily range): BP systolic 97–135; BP diastolic 66–93; PULSE 69–84; RESP 18–21
[2019-05-02] MEDS: PIPER-TAZO 3.375 GM IV (PMX) 100 ML IVPB SCH (06:45)
[2019-05-02] MEDS: PANTOPRAZOLE 40 MG INJ IV SCH ×2 (06:45→17:32)
[2019-05-02] MEDS: INSULIN ASPART [NOVOLOG] 3 ML PEN SC SCH ×4 (08:00→20:30)
[2019-05-02] MEDS: AMLODIPINE 5 MG TAB PO SCH (09:14)
[2019-05-02] MEDS: TACROLIMUS 1 MG CAP PO SCH ×2 (09:14→20:30)
[2019-05-02] MEDS ORDERED: CEFTRIAXONE 1 GM/50 ML (PMX) 50 ML IVPB SCH (10:30)
[2019-05-02] MEDS ORDERED: LIDOCAINE 1% (MPF) 5 ML VIAL SC ONE (11:30)
[2019-05-02] MEDS ORDERED: SOD CHLORIDE 0.9% 1,000 ML IV ONE (12:00)
[2019-05-02] MEDS ORDERED: CEFT1PIG2 IVPB (12:41)
--- NOTE | 2019-05-02 12:42 | PDOCDIS ---
Discharge Instructions CONDITION [id number] Patient Condition: [id number] Good HOME CARE INSTRUCTIONS: [id number] Diet Instructions: [id number] Activity Restrictions: [id number] No Restrictions FOLLOW UP/APPOINTMENTS Follow-up Plan pcp 1 week [facility] liver team 1 week SHELBY KRAUSE MD May 02, 2019 12:42
[2019-05-02] MEDS ORDERED: METF500T24 PO (12:45)
--- NOTE | 2019-05-02 13:51 | RADRPT ---
Echocardiogram Report Patient Name: DORCAS OREILLYPatient ID: [id number] : 1965 (53y 4m)Study Date: 05/02/2019 11:52:53 AM Gender: MAccession #: [id number] Tech: Peewee Marsh FRANCA Location: 623 Ref.Physician: SHELBY KARUSE Height(Cm): BSA: Weight(Kg): Quality: AdequateOrder Physician: HSELBY KRAUSE Account #: Procedures: Echocardiographic Report: Transthoracic echocardiogram with complete 2D, M-Mode, and doppler examination. Indications: Evaluate Left Ventricular function. Measurements: 2D/M Mode Doppler Measurement Value Normal Range Measurement Value Normal Range LVIDd 2D 4.2 [ 4.2 - 5.8 ] cm AV Peak Daryl 1.4 [ 100.0 - 170.0 ] cm/sec LVIDs 2D 2.5 [ 2.5 - 4.0 ] cm AV Peak PG 7.0 [ 2.0 - 9.0 ] mmHg LVPWd 2D 1.2 [ 0.6 - 1.0 ] cm LVOT Peak Daryl 1.2 [ 70.0 - 110.0 ] cm/sec IVSd 2D 1.1 [ 0.6 - 1.0 ] cm LVOT Peak PG 6.0 [ 2.0 - 6.0 ] mmHg AoR Diam 2D 2.6 [ 2.6 - 3.4 ] cm MV E Peak Daryl 0.8 [ 60.0 - 130.0 ] cm/sec EDV 2D 77.3 [ 62.0 - 150.0 ] ml MV A Peak Daryl 1.0 [ 100.0 - 120.0 ] cm/sec ESV 2D 23.0 [ 21.0 - 61.0 ] ml MV E/A 0.8 [ 0.8 - 1.5 ] ratio EF 2D 70.2 [ 52.0 - 72.0 ] percent MV Decel Time 232 [ 104 - 258 ] msec LA Dimen 2D 3.3 [ 3.0 - 4.0 ] cm Lat E` Daryl 0.1 [ 10.0 - 15.0 ] cm/sec Lateral E/E` 9.0 [ 1.0 - 2.0 ] ratio Med E` Daryl 0.1 cm/sec MV E/A 0.8 [ 0.8 - 1.5 ] ratio TR Peak Daryl 1.8 [ 100.0 - 280.0 ] cm/sec TR Peak PG 12.0 mmHg RVSP 15.0 [ 10.0 - 36.0 ] mmHg RA Pressure 3.0 mmHg Findings: Left Ventricle: Normal left ventricular systolic function. Normal left ventricular cavity size. Mild concentric left ventricular hypertrophy. Ejection fraction is visually estimated at 65 %. Tissue Doppler/Mitral Doppler indices are consistent with impaired relaxation (Stage I diastolic dysfunction). Right Ventricle: Normal right ventricular size. Normal right ventricular systolic function. Left Atrium: The left atrium is normal in size. Right Atrium: The right atrium is normal in size. Mitral Valve: Normal appearance of the mitral valve. Mild mitral annular calcification. Trace mitral regurgitation. Aortic Valve: Normal appearance of the aortic valve. No significant aortic stenosis or insufficiency. Tricuspid Valve: Normal appearance and function of the tricuspid valve with trace physiologic regurgitation. The estimated Peak RVSP is 15 mmHg. Pulmonic Valve: Normal pulmonic valve appearance. Pericardium: Normal pericardium with no significant pericardial effusion. Aorta: Normal aortic root. IVC: Normal size and normal respiratory collapse consistent with normal right atrial pressure. Conclusions: Normal left ventricular systolic function. Normal left ventricular cavity size. Mild concentric left ventricular hypertrophy. Ejection fraction is visually estimated at 65 %. Tissue Doppler/Mitral Doppler indices are consistent with impaired relaxation (Stage I diastolic dysfunction). Normal right ventricular size. Normal right ventricular systolic function. No significant valvular stenosis or regurgitation seen. Normal pericardium with no significant pericardial effusion. Electronically Signed By: Everett Mercado 2019-05-02 13:51:04 PDT
[2019-05-02] MEDS ORDERED: METOPROLOL 25 MG TAB PO ONE (13:54)
--- NOTE | 2019-05-02 13:58 | CONS ---
Assessment/Plan Assessment/Plan Hospital Course (Demo Recall) Narrow complex tachycardia Preserved left ventricular ejection fraction Gram-negative sepsis/bacteremia History of liver transplant History of hypertension Patient with tachycardia today with ambulating. Telemetry reviewed with narrow complex tachycardia, differential includes sinus tachycardia versus atrial tachycardia Echocardiogram with preserved left ventricular ejection fraction We will start low-dose beta-erin and titrate as blood pressure permits and heart rate requires Check magnesium level and if less than 2, would recommend supplementation Consultation Date/Type/Reason Admit Date/Time Apr 29, 2019 at 11:04 Type of Consult Cardiology Reason for Consultation Tachycardia Date/Time of Note DATE: 05/02/19 TIME: 13:53 Hx of Present Illness This is a 53-year-old male who was admitted with abdominal pain and fever. Patient found to have gram-negative thais bacteremia and sepsis and currently on antibiotics. Today, patient noted to have episodes of tachycardia with ambulation. Denies any symptoms of palpitations, chest pain or shortness of breath. He denies any dizziness. He is feeling much better since his initial admission. Denies any cardiac history. 12 point review of systems was performed with all pertinent positives and negatives mentioned above and all else is negative Past Medical History Hepatitis C Liver transplant Hypertension Home Meds Active Scripts Metformin Hcl* (Metformin Hcl*) 500 Mg Tablet, 500 MG PO WITH BREAKFAST DINNE for 30 Days, #60 TAB Prov:SHELBY KRAUSE MD 05/02/19 Ceftriaxone Sod* (Rocephin* 1GM/50ML (PMX)) 1 Gm/50 Ml Iv.soln., 1 GM IVPB DAILY for 7 Days, EA Prov:SHELBY KRAUSE MD 05/02/19 Reported Medications Magnesium Oxide* (Magnesium Oxide*) 400 Mg Tablet, 400 MG PO BID, TAB 04/29/19 Calcium Carbonate/Vitamin D3 (Oysco 500+D Tablet) 1 Each Tablet, 1 EACH PO BID, TAB 04/29/19 Pantoprazole* (Protonix*) 40 Mg Tablet.dr, 40 MG PO DAILY, TAB 04/29/19 Terazosin Hcl* (Terazosin Hcl*) 1 Mg Capsule, 1 MG PO HS, CAP 04/29/19 Tacrolimus* (Prograf*) 1 Mg Capsule, 1 MG PO Q12, CAP 04/29/19 Discontinued Reported Medications Amlodipine Besylate* (Norvasc*) 5 Mg Tablet, 5 MG PO DAILY, TAB 04/29/19 Sulfamethoxazole/Trimethoprim* (Bactrim Ds* Tablet) 1 Each Tablet, 1 TAB PO BID, TAB STARTED 7-10 FOR 14 DAYS 04/29/19 Discontinued Scripts Ibuprofen* (Motrin*) 400 Mg Tab, 400 MG PO Q8 PRN for PAIN AND OR ELEVATED TEMP, #12 TAB Prov:ELSA WHITTEN MD 11/14/17 Sulfamethoxazole/Trimethoprim* (Bactrim Ds* Tablet) 1 Each Tablet, 1 TAB PO BID for 7 Days, #14 TAB Prov:ELSA WHITTEN MD 11/14/17 Cephalexin* (Keflex*) 500 Mg Capsule, 500 MG PO BID for 7 Days, CAP Prov:ELSA WHITTEN MD 11/14/17 Medications Current Medications Amlodipine Besylate (Norvasc) 5 mg DAILY PO Last administered on 05/02/19 09:14; Admin Dose 5 MG; Start 04/29/19 at 12:30 Tacrolimus (Prograf) 1 mg Q12 PO Last administered on 05/02/19 09:14; Admin Dose 1 MG; Start 04/29/19 at 12:30 Terazosin HCl (Hytrin) 1 mg HS PO Last administered on 05/01/19 21:25; Admin Dose 1 MG; Start 04/29/19 at 21:00 Insulin Aspart (Novolog Insulin Pen) NOVOLOG *MODERATE* ALGORITHM WITH MEALS BEDTIME SC Last administered on 05/02/19 11:55; Admin Dose 2 UNIT; Start 04/29/19 at 18:00 Acetaminophen (Tylenol Tab) 650 mg Q4H PRN PO MILD PAIN(1-3)OR ELEVATED TEMP Last administered on 04/30/19at 14:51; Admin Dose 650 MG; Start 04/29/19 at 17:00 Hydromorphone HCl (Dilaudid) 1 mg Q3H PRN IV SEVERE PAIN LEVEL 7-10 Last administered on 05/01/19 08:55; Admin Dose 1 MG; Start 04/29/19 at 17:30 Ondansetron HCl 8 mg/Dextrose 54 ml @ 108 mls/hr Q6H PRN IV NAUSEA AND/OR VOMITING; Start 05/01/19 at 06:00 Pantoprazole (Protonix Iv) 40 mg BID@06,18 IV Last administered on 05/02/19at 06:45; Admin Dose 40 MG; Start 05/01/19 at 06:00 Ceftriaxone Sodium 50 ml @ 100 mls/hr Q24H IVPB Last administered on 05/02/19at 11:05; Admin Dose 100 MLS/HR; Start 05/02/19 at 10:30 Allergies: Coded Allergies: morphine (Verified Adverse Reaction, Intermediate, RASH, 04/29/19) Past Surgical History Past Surgical Hx: other (Liver transplant) Family History Significant Family History: no pertinent family hx Social History Alcohol Use: sober Smoking Status: Never smoker Drug Use: none Exam/Review of Systems Vital Signs Vitals Vital Signs Date Temp Pulse Resp B/P (MAP) Pulse Ox O2 O2 Flow FiO2 Time Delivery Rate 05/02/19 97.9 84 18 129/93 95 Room Air 11:08 (105) 05/02/19 2.0 07:32 Intake and Output 05/01/19 05/01/19 05/02/19 1515:00 23:00 07:00 IntakeIntake Total 860 ml 600 ml OutputOutput Total 275 ml 1700 ml 400 ml BalanceBalance -275 ml -840 ml 200 ml Exam Constitutional: alert, oriented (No apparent distress, at bedside) Head: normocephalic Respiratory: clear to auscultation, normal air movement Cardiovascular: regular rate and rhythm (S1-S2 heard) Gastrointestinal: soft, non-tender, bowel sounds Extremities: other (No significant edema) Labs Result Diagram: 05/02/19 0456 05/02/19 0456 Results 24hrs Laboratory Tests Test 05/01/19 17:36 05/01/19 21:24 05/02/19 04:56 05/02/19 08:04 Bedside Glucose 125 148 108 White Blood Count 5.2 Red Blood Count 5.03 Hemoglobin 15.7 Hematocrit 46.5 Mean Corpuscular 92.4 Volume Mean Corpuscular 31.2 Hemoglobin Mean Corpuscular 33.8 Hemoglobin Concent Red Cell 12.4 Distribution Width Platelet Count 126 #L Mean Platelet Volume 11.1 H Immature 0.600 H Granulocytes % Neutrophils % 62.7 Lymphocytes % 25.7 Monocytes % 7.9 Eosinophils % 2.7 Basophils % 0.4 Nucleated Red Blood 0.0 Cells % Immature 0.030 Granulocytes # Neutrophils # 3.2 Lymphocytes # 1.3 Monocytes # 0.4 Eosinophils # 0.1 Basophils # 0.0 Nucleated Red Blood 0.0 Cells # Sodium Level 140 Potassium Level 4.1 Chloride Level 105 Carbon Dioxide Level 26 Anion Gap 9 Blood Urea Nitrogen 14 Creatinine 0.90 Est Glomerular > 60 Filtrat Rate mL/min Glucose Level 132 Hemoglobin A1c 6.4 H Calcium Level 9.6 Total Bilirubin 0.7 Direct Bilirubin 0.00 Indirect Bilirubin 0.7 Aspartate Amino 70 H Transf (AST/SGOT) Alanine 131 H Aminotransferase (AL T/SGPT) Alkaline Phosphatase 103 Total Protein 6.5 Albumin 3.7 Test 05/02/19 11:50 Bedside Glucose 166 Imaging Imaging Telemetry reviewed, overall sinus rhythm, episodes of tachycardia which are narrow complex, atrial tach cardia versus sinus tachycardia Medications Medications Current Medications Amlodipine Besylate (Norvasc) 5 mg DAILY PO Last administered on 05/02/19 09:14; Admin Dose 5 MG; Start 04/29/19 at 12:30 Tacrolimus (Prograf) 1 mg Q12 PO Last administered on 05/02/19 09:14; Admin Dose 1 MG; Start 04/29/19 at 12:30 Terazosin HCl (Hytrin) 1 mg HS PO Last administered on 05/01/19 21:25; Admin Dose 1 MG; Start 04/29/19 at 21:00 Insulin Aspart (Novolog Insulin Pen) NOVOLOG *MODERATE* ALGORITHM WITH MEALS BEDTIME SC Last administered on 05/02/19 11:55; Admin Dose 2 UNIT; Start 04/29/19 at 18:00 Acetaminophen (Tylenol Tab) 650 mg Q4H PRN PO MILD PAIN(1-3)OR ELEVATED TEMP Last administered on 04/30/19 14:51; Admin Dose 650 MG; Start 04/29/19 at 17:00 Hydromorphone HCl (Dilaudid) 1 mg Q3H PRN IV SEVERE PAIN LEVEL 7-10 Last a dministered on 05/01/19 08:55; Admin Dose 1 MG; Start 04/29/19 at 17:30 Ondansetron HCl 8 mg/Dextrose 54 ml @ 108 mls/hr Q6H PRN IV NAUSEA AND/OR VOMITING; Start 05/01/19 at 06:00 Pantoprazole (Protonix Iv) 40 mg BID@06,18 IV Last administered on 05/02/19at 06:45; Admin Dose 40 MG; Start 05/01/19 at 06:00 Ceftriaxone Sodium 50 ml @ 100 mls/hr Q24H IVPB Last administered on 05/02/19at 11:05; Admin Dose 100 MLS/HR; Start 05/02/19 at 10:30 Everett Mercado DO May 02, 2019 13:57
[2019-05-02] MEDS ORDERED: MAGNESIUM SULFATE 3 GM in DEXTROSE 5% 100 ML IVPB ONE (14:30)
[2019-05-02] MEDS: TERAZOSIN 1 MG CAP PO SCH (20:30)
[2019-05-02] MEDS ORDERED: METOPROLOL 25 MG TAB PO SCH (21:00)
--- NOTE | 2019-05-10 06:17 | DS ---
DATE OF ADMISSION: 04/29/2019 DATE OF DISCHARGE: 05/02/2019 DISCHARGE DIAGNOSES: 1. A 53-year-old male with gram-negative thais bacteremia. 2. Abdominal pain, resolved. 3. Status post liver transplant 5 years prior to admission. 4. Elevated LFTs, improved. 5. Thrombocytopenia. HOSPITAL COURSE: A 53-year-old gentleman with history of end-stage liver disease due to hepatitis C, status post treatment followed by a liver transplant 5 years prior to admission, presented to emerge ncy room with complaint of right-sided abdominal pain associated with fevers. The patient was starte d on empiric antibiotic therapy following admission. GI consultation was requested. Liver function tests were initially elevated. The patient underwent MRCP. This was a limited examination due to si gnificant motion artifact. However, there was no intrahepatic or extrahepatic biliary duct dilatatio n. The patient was found to have E. coli bacteremia. His condition improved with IV antibiotic ther apy. LFTs gradually improved as well. The patient is followed at [facility]. I was in touch with them and provided them with the results of MRCP and lab studies. The patient had sinus tachycardia. He was seen in consultation by Dr. Mercado. A 2D echo showed a no rmal ejection fraction of 65% and no significant valvular disease. Telemetry showed narrow complex t achycardia. The patient was started on beta erin therapy. He was discharged home in a stable condition. I discussed the case with infectious disease specialis t and their recommendation was to continue IV Rocephin at home for an additional 7 days. MEDICATIONS ON DISCHARGE: Included: 1. Rocephin 1 gram daily for 7 days. 2. Metformin 500 mg b.i.d. 3. Protonix 40 mg daily. 4. Prograf 1 mg every 12 hours. 5. Terazosin 1 mg at bedtime. 6. Norvasc was discontinued. DISCHARGE FOLLOWUP: The patient was asked to follow up with PCP and his transplant team at [facility] in 1 week. Dictated By: SHLEBY FALL/BANDAR Conf#: [id number] DID#: [id number]
== END 2019-05-02 20:44 | disposition home health service (06) | DRG 872 ==
LOC: E/R 08:03 → 6WM 11:04
PROVIDERS: ADMIT Internal Medicine; ATTEND Internal Medicine
PROC: 02HV33Z Insertion of Infusion Device into Superior Vena Cava, Percutaneous Approach (ICD-10-PCS; principal; 2019-05-02)
DX: A41.50 Gram-negative sepsis, unspecified (principal); K83.09 Other cholangitis; Z94.4 Liver transplant status; D69.6 Thrombocytopenia, unspecified; I10 Essential (primary) hypertension; R10.11 Right upper quadrant pain; R73.9 Hyperglycemia, unspecified; R00.0 Tachycardia, unspecified; Z87.440 Personal history of urinary (tract) infections; Z79.899 Other long term (current) drug therapy
CPT/HCPCS: 36415; 36569; 71045; 74177; 74182; 76937; 80048; 80053; 80076; 81001; 82150; 82962; 83036; 83605; 83690; 83735; 84484; 85025; 85610; 85730; 87086; 93005; 93306; 96365; 96367; 96375; C9113; J0692; J0696; J1170; J1815; J2405; J2543; J3370; J3475; J7030; J7042; J7507; Q9967